=== PATIENT | female | born 1950 | race Caucasian/White ===

== ENCOUNTER → 2017-12-25 | Outpatient (CLI) | payer MEDICARE, OTHER | END | disposition home or self-care (01) | LOC: LAB SHORT 09:52 → LAB 09:52 | PROVIDERS: Nurse Practitioner | DX: Z01.419 Encounter for gynecological examination (general) (routine) without abnormal findings (principal) | CPT/HCPCS: G0145 ==

== ENCOUNTER 2018-06-29 00:13 | Day surgery (SDC) | payer MEDICARE, OTHER ==
--- NOTE | 2018-06-29 18:16 | NUR ---
LABS DRAWN FROM PERIPHERAL IV LINE AFTER IT WAS FLUSHED WITH NS AND 5 ML WASTED.
[2018-06-29] MEDS ORDERED: NAPR500 PO (18:30)
[2018-06-29] MEDS ORDERED: METF500C PO (18:30)
[2018-06-29] MEDS ORDERED: ZESTORETIC 20-121 EA (18:32)
[2018-06-29] MEDS ORDERED: LORPSEER24 (18:32)
[2018-06-29] MEDS ORDERED: Bupropion Xl150 MG PO (18:32)
[2018-06-29] MEDS ORDERED: ANGELIQ 0.25 M1 EACH PO (18:33)
[2018-06-29] MEDS ORDERED: ABAT250V (18:33)
== END 2018-06-29 18:10 | disposition home or self-care (01) ==
LOC: ATC 00:13
DX: D50.0 Iron deficiency anemia secondary to blood loss (chronic) (principal)
CPT/HCPCS: 36415; 36430; 85018; 86850; 86900; 86901; 86923; J7050; P9016

== ENCOUNTER 2018-07-02 00:01 | Day surgery (SDC) | payer MEDICARE, OTHER ==
[~2018-07-02 00:01] MED LIST: ABAT250V; ANGELIQ 0.25 M1 EACH PO; Bupropion Xl150 MG PO; LORPSEER24; METF500C PO; NAPR500 PO; ZESTORETIC 20-121 EA
== END 2018-07-02 12:20 | disposition home or self-care (01) ==
LOC: ATC 00:01
DX: D50.0 Iron deficiency anemia secondary to blood loss (chronic) (principal)
CPT/HCPCS: 36415; 36430; 86850; 86900; 86901; 86923; J7050; P9016

== ENCOUNTER → 2018-07-11 | Outpatient (CLI) | payer MEDICARE, OTHER ==
[2018-07-12 13:42] LABS: Stool Occult Bld Immuno 1 Positive (NEGATIVE); Stool Occult Bld Immuno 2 Positive (NEGATIVE); Stool Occult Bld Immuno 3 Positive (NEGATIVE)
== END | disposition home or self-care (01) ==
LOC: LAB SHORT 02:00 → LAB EV 02:00
PROVIDERS: Nurse Practitioner
DX: D50.0 Iron deficiency anemia secondary to blood loss (chronic) (principal)
CPT/HCPCS: 82274

== ENCOUNTER 2018-07-31 07:43 | Day surgery (SDC) | payer MEDICARE, OTHER ==
[~2018-07-31] VITALS: Ht 170.2 cm; Wt 90.7 kg
--- NOTE | 2018-07-31 08:35 | NUR ---
07/31/18 0835 Zuly Curiel 1 MISSED IV IN RH BY CEZAR VALVE 1 GOOD IV IN RAC BY CEZAR PT TOW
--- NOTE | 2018-07-31 10:32 | NUR ---
07/31/18 1032 Prabha Christian ATTEMPTED DILITATION WITH SOSA BUT NOT SUCCESSFUL, CHANGED TO DILITATION WITH SAVORIES WITH SUCCESS.
== END 2018-07-31 11:31 | disposition home or self-care (01) ==
LOC: ORSCSDS 07:43
DX: D50.9 Iron deficiency anemia, unspecified (principal); K31.7 Polyp of stomach and duodenum; K22.2 Esophageal obstruction; K44.9 Diaphragmatic hernia without obstruction or gangrene; K64.4 Residual hemorrhoidal skin tags; K64.8 Other hemorrhoids; K57.30 Diverticulosis of large intestine without perforation or abscess without bleeding; R19.5 Other fecal abnormalities; I10 Essential (primary) hypertension; Z79.899 Other long term (current) drug therapy
CPT/HCPCS: 88305; 88341; 88342; J7120

== ENCOUNTER → 2022-07-01 | Outpatient (CLI) | payer MEDICARE, OTHER ==
[2022-07-02 16:20] LABS: Adenovirus F 40/41 Not Detected (NOT DETECT); Astrovirus Not Detected (NOT DETECT); Campylobacter Sp Not Detected (NOT DETECT); Cryptosporidium Not Detected (NOT DETECT); Cyclospora Cayetanensis Not Detected (NOT DETECT); E. Coli O157 Not Detected (NOT DETECT); Entamoeba Histolytica Not Detected (NOT DETECT); Enteroaggregative E. coli-EAEC Not Detected (NOT DETECT); Enteropathogenic E. coli-EPEC Not Detected (NOT DETECT); Enterotoxigenic E. coli-ETEC Not Detected (NOT DETECT); Giardia Lamblia Not Detected (NOT DETECT); Norovirus GI/GII Not Detected (NOT DETECT); Plesiomonas Shigelloides Not Detected (NOT DETECT); Rotavirus A Not Detected (NOT DETECT); Salmonella Sp Not Detected (NOT DETECT); Sapovirus Not Detected (NOT DETECT); Shiga Toxin-prod E. coli-STEC Not Detected (NOT DETECT); Shigella/Enteroin E. coli-EIEC Not Detected (NOT DETECT); Vibrio Cholerae Not Detected (NOT DETECT); Vibrio Sp Not Detected (NOT DETECT); Yersinia Enterocolitica Not Detected (NOT DETECT)
== END | disposition home or self-care (01) ==
LOC: LAB SHORT 13:00
PROVIDERS: Physician Assistant Medical
DX: R19.7 Diarrhea, unspecified (principal); R10.84 Generalized abdominal pain
CPT/HCPCS: 87507